=== PATIENT | male | born 2000 | race Hispanic/Latino ===

== ENCOUNTER 2024-03-03 21:27 | Emergency (ER) | payer OTHER ==
[2024-03-03] MEDS ORDERED: Lidocaine 4% Patch ONE (23:16)
[2024-03-03] MEDS ORDERED: Acetaminophen 500 MG TAB ONE (23:16)
[2024-03-03 23:42] LABS: Bilirubin Neg (Negative); Blood, Urine Negative (Negative); Clarity Clear (Clear); Glucose, Urine (Dipstick) Normal (Negative); Ketone, Urine 15 mg/dL (Negative); Leukocyte Negative (Negative); Nitrite Negative (Negative); Protein, Urine (Dipstick) Negative (Neg-Trace); Specific Gravity, Urine 1.015 (1.005-1.030); Urobilinogen Normal mg/dL (Less than 2)
[2024-03-04 00:05] LABS: Bacteria/HPF None Seen HPF (None Seen); CAUTI Indications for Culture Spinal Cord Injury; RBC/HPF 0-3 HPF (0-3); Squamous Epithelial 0-3 HPF (0-3); WBC/HPF None Seen HPF (0-3)
[2024-03-04 00:06] LABS: Urine Culture Reflex No No
[2024-03-04] MEDS ORDERED: Methocarbamol 500 MG TAB ONE (00:35)
== END 2024-03-04 00:50 | disposition home or self-care (01) ==
LOC: CSHERS 21:27
DX: M79.10 Myalgia, unspecified site (principal)
CPT/HCPCS: 81001; 99283